=== PATIENT | male | born 1950 | race Caucasian/White ===

== ENCOUNTER 2018-08-07 10:13 | Inpatient (IN) | payer MEDICARE, OTHER ==
[~2018-08-07 10:13] MED LIST: LACTATED RINGER'S 1,000 ML IV*
[2018-08-07] MEDS: CEFAZOLIN 1 GM INJ (12:06)
[2018-08-07] MEDS: SURGIFOAM POWDER 1 GM KIT (12:06)
[2018-08-07] MEDS: BUPIVACAINE 0.25%/EPI (SDV) 30 ML INJ (12:06)
[2018-08-07] MEDS ORDERED: GELATIN SIZE 100 SPONGE (12:06)
[2018-08-07] MEDS: THROMBIN 5000 UNIT VIAL (12:07)
[2018-08-07] MEDS: CA CHLORIDE 10% 10 ML SYRINGE (12:07)
[2018-08-07] MEDS: HEPARIN 1000 UNITS/ML 10 ML INJ (12:07)
[2018-08-07] MEDS ORDERED: PROPOFOL 20 ML (12:20)
[2018-08-07] MEDS ORDERED: MIDAZOLAM 1 MG/ML 2 ML INJ (12:20)
[2018-08-07] MEDS ORDERED: LIDOCAINE 2% (SDV) 5 ML INJ (12:20)
[2018-08-07] MEDS ORDERED: SUCCINYLCHOLINE CHLORIDE 100 MG/5 ML SYG IV (12:20)
[2018-08-07] MEDS ORDERED: NALOXONE (0.4 MG/ML) INJ IV (12:30)
[2018-08-07] MEDS ORDERED: ONDANSETRON 4 MG INJ IV ×2 (12:30→19:30)
[2018-08-07] MEDS ORDERED: CEPASTAT LOZENGE MT (12:30)
[2018-08-07] MEDS ORDERED: CARISOPRODOL 350 MG TAB PO (12:30)
[2018-08-07] MEDS ORDERED: BISACODYL 10 MG SUPP PR (12:30)
[2018-08-07] MEDS ORDERED: ACETAMINOPHEN 325 MG TAB PO (12:30)
[2018-08-07] MEDS ORDERED: ZOLPIDEM 5 MG TAB PO (12:30)
[2018-08-07] MEDS ORDERED: traMADol 50 MG TAB PO (12:30)
[2018-08-07] MEDS ORDERED: HYDROmorphONE 0.5 MG/0.5 ML SYG IV (12:30)
[2018-08-07] MEDS ORDERED: DIPHENHYDRAMINE 50 MG INJ IV ×2 (12:30→19:30)
[2018-08-07] MEDS ORDERED: AL HYDROX/MG HYDROX/SIMETH 30 ML CUP PO (12:30)
[2018-08-07] MEDS ORDERED: CEFAZOLIN 1 GM INJ ×2 (12:57→17:47)
[2018-08-07] MEDS: CEFAZOLIN 2 GM/50 ML (PMX) 50 ML IVPB (12:58)
[2018-08-07] MEDS ORDERED: DEXAMETHASONE 4 MG/ML 1 ML INJ (13:27)
[2018-08-07] MEDS ORDERED: FAMOTIDINE 20 MG INJ (13:27)
[2018-08-07] MEDS ORDERED: ONDANSETRON 4 MG INJ (13:27)
[2018-08-07] MEDS ORDERED: ROCURONIUM 50 MG INJ ×4 (13:33→16:41)
[2018-08-07] MEDS ORDERED: EPHEDrine SULFATE 50 MG/5 ML SYG (13:34)
[2018-08-07] MEDS ORDERED: THROMBIN 5000 UNIT VIAL (13:55)
[2018-08-07] MEDS ORDERED: SURGIFOAM POWDER 1 GM KIT (13:55)
[2018-08-07] MEDS ORDERED: SUGAMMADEX SODIUM 200 MG/2 ML VIAL IV ×2 (15:07→18:23)
[2018-08-07] MEDS: BUPIVACAINE 0.25% (MPF) 30 ML INJ (15:08)
[2018-08-07] MEDS: FENTAnyl 50 MCG/ML VIAL (15:08)
[2018-08-07] MEDS ORDERED: HYDROmorphONE 2 MG/ML SYG (15:18)
[2018-08-07 19:15] LABS: ADD UMIC YES; UR AMORPHOUS CRYSTAL MODERATE /HPF (NONE SEEN); UR ASCORBIC ACID NEGATIVE (NEGATIVE); UR BACTERIA FEW /HPF (NONE SEEN); UR BILIRUBIN (Dip) NEGATIVE (NEGATIVE); UR BLOOD (Dip) NEGATIVE (NEGATIVE); UR CLARITY SLIGHTLY CLOUDY (CLEAR); UR COLOR YELLOW (YELLOW); UR GLUCOSE (Dip) NEGATIVE (NEGATIVE); UR KETONES (Dip) NEGATIVE (NEGATIVE); UR LEUKOCYTE ESTERASE (Dip) NEGATIVE Leu/ul (NEGATIVE); UR MUCUS FEW /HPF (NONE SEEN); UR NITRITE (Dip) NEGATIVE (NEGATIVE); UR RBC 8 /HPF (0-5); UR SPECIFIC GRAVITY (Dip) 1.018 (1.003-1.030); UR TOTAL PROTEIN (Dip) 1+ mg/dl (NEGATIVE); UR UROBILINOGEN (Dip) NEGATIVE (NEGATIVE); UR WBC 4 /HPF (0-5)
[2018-08-07] MEDS ORDERED: FENTAnyl 50 MCG/ML VIAL IV ×3 (19:30)
[2018-08-07] MEDS ORDERED: PROCHLORPERAZINE 10 MG INJ IV (19:30)
[2018-08-07] MEDS ORDERED: LABETALOL HCL 20MG INJ IV (19:30)
[2018-08-07] MEDS ORDERED: hydrALAzine 20 MG INJ IV (19:30)
[2018-08-07] MEDS ORDERED: MEPERIDINE 25 MG INJ IV (19:30)
[2018-08-07] MEDS ORDERED: HYDROmorphONE 1 MG/5 ML IV SYRINGE IV ×3 (19:30)
[2018-08-07] MEDS: CEFAZOLIN 1 GM/50 ML (PMX) 50 ML IVPB ×2 (19:46→20:15)
[2018-08-07] MEDS: HYDROmorphONE 0.2 MG/ML PCA IV (19:52)
[2018-08-07] MEDS: D5W-0.45 NACL + KCL 20 MEQ 1,000 ML IV ×2 (20:15→22:24)
[2018-08-07] MEDS ORDERED: NON-FORMULARY/PATIENT OWN MED (Pravastatin Sodium* 80 MG) PO (21:00)
[2018-08-07] MEDS: ATORVASTATIN 20 MG TAB PO (21:00)
[2018-08-07] MEDS: DOCUSATE SODIUM 100 MG CAP PO (21:00)
[2018-08-08] MEDS: CEFAZOLIN 1 GM/50 ML (PMX) 50 ML IVPB ×2 (03:41→12:00)
[2018-08-08 05:23] LABS: ADD MAN DIFF? NO
[2018-08-08 05:33] LABS: WHITE BLOOD COUNT 11.8 10^3/ul (4.8-10.8)
[2018-08-08 05:33] LABS: ABNORMAL IP MESSAGE 1; BASOPHILS % 0.1 % (0.0-2.0); HEMATOCRIT 39.8 % (42.0-52.0); HEMOGLOBIN 13.7 g/dl (14.0-18.0); LYMPHOCYTES # 0.5 10^3/ul (0.8-2.9); LYMPHOCYTES % 4.2 % (15.0-51.0); MEAN CORPUSCULAR HEMOGLOBIN 31.6 pg (29.0-33.0); MEAN CORPUSCULAR HGB CONC 34.4 g/dl (32.0-37.0); MEAN CORPUSCULAR VOLUME 91.9 fl (82.0-101.0); MEAN PLATELET VOLUME 11.3 fl (7.4-10.4); MONOCYTES % 8.4 % (0.0-11.0); NEUTROPHIL # 10.2 10^3/ul (1.6-7.5); NEUTROPHILS % 86.5 % (39.0-77.0); PLATELET COUNT 156 10^3/UL (140-415); POSITIVE DIFF @See below; RED BLOOD COUNT 4.33 10^6/ul (4.70-6.10); RED CELL DISTRIBUTION WIDTH 12.6 % (11.5-14.5)
[2018-08-08 06:03] LABS: ANION GAP 14 (8-16); BLOOD UREA NITROGEN 15 mg/dl (7-20); CALCIUM 8.7 mg/dl (8.4-10.2); CARBON DIOXIDE 26 mmol/L (21-31); CHLORIDE 102 mmol/L (97-110); CREATININE 1.06 mg/dl (0.61-1.24); GLUCOSE 176 mg/dl (70-220); MAGNESIUM 1.8 mg/dl (1.7-2.5); POTASSIUM 4.3 mmol/L (3.5-5.1); SODIUM 138 mmol/L (135-144)
[2018-08-08] MEDS: PANTOPRAZOLE 40 MG INJ IV (06:22)
[2018-08-08] MEDS: D5W-0.45 NACL + KCL 20 MEQ 1,000 ML IV ×2 (06:23→17:59)
[2018-08-08] MEDS: DOCUSATE SODIUM 100 MG CAP PO ×2 (08:31→20:58)
[2018-08-08] MEDS: ALLOPURINOL 100 MG TAB PO (08:31)
[2018-08-08] MEDS: LISINOPRIL 20 MG TAB PO (08:32)
[2018-08-08] MEDS: ATORVASTATIN 20 MG TAB PO (20:58)
[2018-08-09] MEDS: D5W-0.45 NACL + KCL 20 MEQ 1,000 ML IV ×2 (04:24→15:13)
[2018-08-09 05:21] LABS: ADD MAN DIFF? NO
[2018-08-09 05:26] LABS: BASOPHILS % 0.2 % (0.0-2.0); EOSINOPHILS # 0.1 10^3/ul (0.0-0.5); EOSINOPHILS % 0.6 % (0.0-7.0); HEMATOCRIT 36.9 % (42.0-52.0); HEMOGLOBIN 12.6 g/dl (14.0-18.0); LYMPHOCYTES # 1.2 10^3/ul (0.8-2.9); LYMPHOCYTES % 11.7 % (15.0-51.0); MEAN CORPUSCULAR HEMOGLOBIN 31.3 pg (29.0-33.0); MEAN CORPUSCULAR HGB CONC 34.1 g/dl (32.0-37.0); MEAN CORPUSCULAR VOLUME 91.8 fl (82.0-101.0); MEAN PLATELET VOLUME 11.7 fl (7.4-10.4); MONOCYTE # 0.9 10^3/ul (0.3-0.9); MONOCYTES % 9.5 % (0.0-11.0); NEUTROPHIL # 7.6 10^3/ul (1.6-7.5); NEUTROPHILS % 77.7 % (39.0-77.0); PLATELET COUNT 135 10^3/UL (140-415); POSITIVE DIFF @See below; RED BLOOD COUNT 4.02 10^6/ul (4.70-6.10)
[2018-08-09 05:26] LABS: WHITE BLOOD COUNT 9.8 10^3/ul (4.8-10.8)
[2018-08-09 05:40] LABS: ANION GAP 9 (8-16); BLOOD UREA NITROGEN 15 mg/dl (7-20); CALCIUM 8.6 mg/dl (8.4-10.2); CARBON DIOXIDE 30 mmol/L (21-31); CHLORIDE 102 mmol/L (97-110); CREATININE 0.88 mg/dl (0.61-1.24); GLUCOSE 120 mg/dl (70-220); POTASSIUM 3.7 mmol/L (3.5-5.1); SODIUM 137 mmol/L (135-144)
[2018-08-09] MEDS: PANTOPRAZOLE 40 MG INJ IV (06:00)
[2018-08-09] MEDS: DOCUSATE SODIUM 100 MG CAP PO ×2 (08:20→21:53)
[2018-08-09] MEDS: LISINOPRIL 20 MG TAB PO (08:21)
[2018-08-09] MEDS: ALLOPURINOL 100 MG TAB PO (08:22)
[2018-08-09] MEDS: traMADol 50 MG TAB PO (09:32)
[2018-08-09] MEDS: ATORVASTATIN 20 MG TAB PO (21:53)
[2018-08-10 05:16] LABS: ADD MAN DIFF? NO
[2018-08-10 05:18] LABS: WHITE BLOOD COUNT 8.9 10^3/ul (4.8-10.8)
[2018-08-10 05:18] LABS: BASOPHILS % 0.5 % (0.0-2.0); EOSINOPHILS # 0.2 10^3/ul (0.0-0.5); EOSINOPHILS % 2.3 % (0.0-7.0); HEMATOCRIT 36.4 % (42.0-52.0); HEMOGLOBIN 12.2 g/dl (14.0-18.0); LYMPHOCYTES # 1.6 10^3/ul (0.8-2.9); LYMPHOCYTES % 18.1 % (15.0-51.0); MEAN CORPUSCULAR HEMOGLOBIN 30.9 pg (29.0-33.0); MEAN CORPUSCULAR HGB CONC 33.5 g/dl (32.0-37.0); MEAN CORPUSCULAR VOLUME 92.2 fl (82.0-101.0); MEAN PLATELET VOLUME 11.3 fl (7.4-10.4); NEUTROPHILS % 67.5 % (39.0-77.0); PLATELET COUNT 136 10^3/UL (140-415); POSITIVE DIFF @See below; RED BLOOD COUNT 3.95 10^6/ul (4.70-6.10); RED CELL DISTRIBUTION WIDTH 12.6 % (11.5-14.5)
[2018-08-10] MEDS: PANTOPRAZOLE (EC) 40 MG TAB PO (05:43)
[2018-08-10 05:45] LABS: ANION GAP 10 (8-16); BLOOD UREA NITROGEN 15 mg/dl (7-20); CALCIUM 8.7 mg/dl (8.4-10.2); CARBON DIOXIDE 31 mmol/L (21-31); CHLORIDE 101 mmol/L (97-110); CREATININE 0.91 mg/dl (0.61-1.24); GLUCOSE 108 mg/dl (70-220); MAGNESIUM 2.1 mg/dl (1.7-2.5); POTASSIUM 3.8 mmol/L (3.5-5.1); SODIUM 138 mmol/L (135-144)
[2018-08-10] MEDS: LISINOPRIL 20 MG TAB PO (09:00)
[2018-08-10] MEDS: DOCUSATE SODIUM 100 MG CAP PO (09:38)
[2018-08-10] MEDS: ALLOPURINOL 100 MG TAB PO (09:39)
[2018-08-10] MEDS ORDERED: HYDROmorphONE 2 MG TAB PO (18:00)
== END 2018-08-10 20:16 | disposition home or self-care (01) | DRG 454 ==
LOC: REC 10:13 → MS1 20:05
PROC: 0SG10AJ Fusion of 2 or more Lumbar Vertebral Joints with Interbody Fusion Device, Posterior Approach, Anterior Column, Open Approach (ICD-10-PCS; principal; 2018-08-07 12:00)
PROC: 0SG1071 Fusion of 2 or more Lumbar Vertebral Joints with Autologous Tissue Substitute, Posterior Approach, Posterior Column, Open Approach (ICD-10-PCS; 2018-08-07 12:00)
PROC: 0ST20ZZ Resection of Lumbar Vertebral Disc, Open Approach (ICD-10-PCS; 2018-08-07 12:00)
PROC: 07DR3ZZ Extraction of Iliac Bone Marrow, Percutaneous Approach (ICD-10-PCS; 2018-08-07 12:00)
DX: M48.061 Spinal stenosis, lumbar region without neurogenic claudication (principal); D68.59 Other primary thrombophilia; M54.16 Radiculopathy, lumbar region; M43.16 Spondylolisthesis, lumbar region; I10 Essential (primary) hypertension; E78.5 Hyperlipidemia, unspecified; M10.9 Gout, unspecified; I73.00 Raynaud's syndrome without gangrene; Z85.828 Personal history of other malignant neoplasm of skin
CPT/HCPCS: 72114; 80048; 81001; 83735; 85025; 86850; 86900; 86901; 86999; 87086; 88304; 97110; 97116; 97161; 97530